=== PATIENT | female | born 1995 | race Hispanic/Latino ===

== ENCOUNTER 2021-02-06 23:30 | Emergency (ER) | payer MEDICAID, OTHER ==
[~2021-02-06] VITALS: Ht 157.5 cm; Wt 59.9 kg
[2021-02-07] MEDS ORDERED: DICYCLOMINE HCL 10 MG/5 ML ML PO ONE (01:30)
[2021-02-07] MEDS ORDERED: MAG/ALUM/SIMETH 30 ML UDCUP PO ONE (01:30)
[2021-02-07] MEDS ORDERED: LIDOCAINE HCL 2% VISCOUS 15 ML UDCUP PO ONE (01:30)
[2021-02-07] MEDS ORDERED: HYOS0.124 SL (02:19)
[2021-02-07 02:20] VITALS: BP 118/63
== END 2021-02-07 02:34 | disposition home or self-care (01) ==
LOC: EDH 23:30
DX: R14.0 Abdominal distension (gaseous) (principal); Z87.19 Personal history of other diseases of the digestive system